=== PATIENT | male | born 1985 | race African-American/Black ===

== ENCOUNTER 2022-04-13 14:13 | Emergency (ER) | payer OTHER, MEDICAID ==
[~2022-04-13] VITALS: Ht 172.7 cm; Wt 79.4 kg
--- NOTE | 2022-04-13 14:14 | NUR ---
Patient to ER bed 07 to gown for evaluation. Side rails up. Report received from RIGOBERTO Hand.
--- NOTE | 2022-04-13 14:15 | NUR ---
Patient was brought in by girlfriend stating he took 10 tylenol PM at 1400 because he had severe headache. Patient denies suicidal thoughts or wishes and states he was unaware of how serious it was to take this amount of medication. Patient denies medical and surgical hx. Pt is in no acute distress at this time, VSS. Patient is displaying drowsiness, but is A&Ox4. States he is in no pain. Care to be given as ordered by provider.
--- NOTE | 2022-04-13 14:17 | NUR ---
Called Poison Control at [phone] and spoke with Gladis. Per recommendations: Aminister 50g of charcoal within 1 hour of injestion. EKG upon admission and repeat EKG after four hours (1800). Monitor for QRS prolongations (widens > 100 millisec)and QTC (widens > than 500 millisec). complete liver panel at time of second EKG. Dr. Rea notified. Will continue to monitor patient.
--- NOTE | 2022-04-13 14:50 | NUR ---
ER Dr. Rea at bedside examining patient.
[2022-04-13 15:00] VITALS: BP_SYST 134
[2022-04-13] MEDS ORDERED: activated charcoaL 50 GM/240 ML ORAL.SUSP PO ONE (15:00)
[2022-04-13] MEDS ORDERED: NACL 0.9% 1,000 ML IV ONE (15:00)
[2022-04-13] MEDS ORDERED: DEXAMETHASONE SOD PHOSPHATE 10 MG/ML VIAL IVP ONE (15:15)
[2022-04-13] MEDS ORDERED: METOCLOPRAMIDE HCL 10 MG/2 ML VIAL IVP ONE (15:15)
[2022-04-13 16:23] LABS: BASOPHILS % (AUTO) 0.5 % (0.0-2.0); EOSINOPHILS % (AUTO) 0.1 % (0.0-4.0); HEMATOCRIT 44.7 % (36-54); HEMOGLOBIN 15.1 g/dL (14.0-18.0); LYMPHOCYTES # (AUTO) 0.6 K/uL (1.0-5.5); LYMPHOCYTES % (AUTO) 10.9 % (20.5-51.5); MEAN CORPUSCULAR HEMOGLOBIN 33 pg (27-31); MEAN CORPUSCULAR HGB CONC 34 % (32-36); MEAN CORPUSCULAR VOLUME 97 fL (79.0-98.0); MONOCYTES # (AUTO) 0.2 K/uL (0.0-1.0); MONOCYTES % (AUTO) 3.9 % (1.7-9.3); NEUTROPHILS % (AUTO) 84.6 % (40.0-70.0); PLATELET COUNT (AUTO) 241 K/uL (130-430); RED BLOOD CELL COUNT(AUTO) 4.58 MIL/uL (4.2-6.2); RED CELL DISTRIBUTION WIDTH 12.6 % (9.0-15.0); WHITE BLOOD COUNT (AUTO) 5.9 K/uL (4.8-10.8)
[2022-04-13 16:30] LABS: CALCIUM 9.3 mg/dL (8.4-11.0); CREATININE 1.16 mg/dL (0.55-1.30)
[2022-04-13 16:42] LABS: ALBUMIN 4.9 g/dL (3.4-4.8); TOTAL BILIRUBIN 0.8 mg/dL (0.0-1.0)
[2022-04-13] MEDS ORDERED: ACET-3025 PO (19:09)
[2022-04-13 19:13] LABS: CALCIUM 8.3 mg/dL (8.4-11.0); CREATININE 1.04 mg/dL (0.55-1.30)
[2022-04-13 19:25] LABS: ALBUMIN 4.5 g/dL (3.4-4.8); TOTAL BILIRUBIN 0.9 mg/dL (0.0-1.0)
--- NOTE | 2022-04-13 19:34 | NUR ---
Patient able to ambulate with steady gait.
--- NOTE | 2022-04-13 20:00 | NUR ---
Patient given written and verbal discharge instructions and verbalizes understanding. ER DR VITALY VILLALPANDO discussed with patient the results and treatment provided. Patient in stable condition. ID arm band removed. IV catheter removed intact and dressing applied, no active bleeding. Rx of TYLENOL ES given. Patient educated on pain management and to follow up with PMD. Pain Scale 0 . Opportunity for questions provided and answered. Medication side effect fact sheet provided. AWAITING FOR GF TO COME PICK HIM UP SITTING IN WAITING ROOM.
--- NOTE | 2022-04-13 21:30 | NUR ---
GF CAME AND PICK HIM BY CAR
[2022-04-14 00:08] VITALS: BP_SYST 127
== END 2022-04-13 20:01 | disposition home or self-care (01) ==
LOC: SED 14:13
DX: T39.1X1A Poisoning by 4-Aminophenol derivatives, accidental (unintentional), initial encounter (principal); R11.10 Vomiting, unspecified; G43.909 Migraine, unspecified, not intractable, without status migrainosus; F17.200 Nicotine dependence, unspecified, uncomplicated; F12.90 Cannabis use, unspecified, uncomplicated; Z79.899 Other long term (current) drug therapy; Y92.89 Other specified places as the place of occurrence of the external cause
CPT/HCPCS: 99284; 96374; 96361; 96375; 85025; 36415; 93005; 80053; 80048; G0482; J1100; J2765; J7030; G0480; G0481

== ENCOUNTER 2023-08-18 19:35 | Emergency (ER) | payer MEDICAID, OTHER ==
[~2023-08-18] VITALS: Ht 170.2 cm; Wt 72.6 kg
[2023-08-18 19:35] VITALS: BP_SYST 114; PULSE 89; RESP 18; TEMP 97.8; O2SAT 98
[~2023-08-18 19:35] MED LIST: ACET-3025 PO
== END 2023-08-18 19:56 ==
LOC: SED 19:35
DX: Z02.89 Encounter for other administrative examinations (principal); Z79.899 Other long term (current) drug therapy
CPT/HCPCS: 99283